=== PATIENT | male | born 1960 | race Caucasian/White ===

== ENCOUNTER 2023-04-11 11:04 | Outpatient (CLI) | payer BC | END 2023-04-11 11:05 | disposition EMS.NT | LOC: EMS 11:04 | DX: R58 Hemorrhage, not elsewhere classified (principal) ==

== ENCOUNTER 2023-04-11 11:19 | Emergency (ER) | payer BC ==
--- NOTE | 2023-04-11 11:44 | ED Physician Documentation ---
PD HPI LOWER EXT INJURY - Stated complaint Stated Complaint: LT LEG LAC - Chief complaint Chief Complaint: Trauma Ext - History obtained from History obtained from: Patient - History of Present Illness PD HPI LOW EXT INJURY LOCATION: Left, Lower leg Type of injury: Puncture wound (The patient was gardening 2 days ago and had a small abrasion/puncture to the anterior lower leg. It bled briefly and then stopped. He to had it bandaged. There was a small scabs in the area which she scraped at today to remove it and the wound started bleeding briskly in a spurting fashion.) Where injury occurred: Home (The patient and his did apply pressure to the area but it was still bleeding through bandage. EMS was called and they applied a tighter wrap and bandage to it that stopped the bleeding. Patient came here by private vehicle.) Timing - onset: How many days ago (injury 2 days ago, bleeding started today 1/2 hour [employer].) Timing - details: Abrupt onset Worsened by: Palpating Associated symptoms: No: Weakness, Numbness Review of Systems Neurologic: denies: Focal weakness, Numbness PD PAST MEDICAL HISTORY - Past Medical History Past Medical History: No Cardiovascular: None Respiratory: None Neuro: None Endocrine/Autoimmune: None GI: None : None HEENT: None Psych: None Musculoskeletal: None Derm: None - Past Surgical History Past Surgical History: No - Allergies Allergies/Adverse Reactions: Allergies Allergy/AdvReac Type Severity Reaction Status Date / Time No Known Drug Allergies Allergy Verified 04/11/23 11:36 - Social History Does the pt smoke?: No Smoking Status: Never smoker Does the pt drink ETOH?: Yes ETOH Use: Wine Does the pt have substance abuse?: No - Immunizations Immunizations are current?: Yes - POLST Patient has POLST: No PD ED PE NORMAL - Vitals Vital signs reviewed: Yes - General General: Alert and oriented X 3, No acute distress, Well developed/nourished - Derm Derm: Normal color, Warm and dry - Extremities Extremities: Other (The left anterior lower leg shows a small 2 or 3 mm sized wound that has dark blood spurting out in a steady fashion when I remove the dressing. It appears to be a varicosity but under higher pressure due to the small hole of it.) Results - Vitals Vitals: Vital Signs - 24 hr 04/11/23 04/11/23 11:32 12:39 Temperature 36.6 C 36.5 C Heart Rate 102 H 91 Respiratory 19 18 Rate Blood Pressure 147/83 H 135/80 H O2 Saturation 99 99 Oxygen O2 Source Room air Procedures - Laceration (location) left anterior lower leg Length in cm: 0.3 Wound type: Linear, Superficial, Clean Neurovascular status: Sensory intact, Motor intact Anesthesia: Lidocaine 1% Wound preparation: Irrigated copiously NS, Wound explored, To the base Skin layer closure: Nylon, Interrupted, Size #-0 - enter number (4), Sutures - enter # (5 - initially tried 2 in cross-X pattern to close over the small hole, but did not slow the bleeding much. Then I placed one suture below the wound in course of the vein and 2 above, each about a cm away from center and this stopp ed bleeding completely.) Other: Patient tolerated well, No complications PD Medical Decision Making - ED course Complexity details: considered differential (brisk spurting bleeding from apparent superficial vein on lower leg, but is too brisk for just TXA or dressing. Needs suture ligation/pressure. ), d/w patient ED course: I did get bleeding stopped with five sutures at wound spot and of the vein course above and below a cm or so. I then placed gauze with TXA over site and lo ose gauze/Coban to hold in position. Departure - Departure Disposition: 01 Home, Self Care Clinical Impression: Laceration of lower leg, Venous bleed Condition: Stable Record reviewed to determine appropriate education?: Yes Instructions: ED Laceration All Comments: The small puncture/lacerations seem to involve one of the surface veins (varicosity) and just had enough pressure and it to be spurting the way it was. I sutured over the puncture wound and then just above and below along the line of the vein which stopped the bleeding. Keep the dressing on today and clean and dry until tomorrow. At that point you can start with regular wound care of cleaning soap and water and regular bandages. Recheck if signs of infection. Suture removal 7 to 8 days. Return if it has significant bleeding again but I would not expect it the way it is stitched up at this point. Try not to do vigorous activity such as heavy lifting, prolonged walking or standing, yardwork, etc for 2-3 days. Riding in the car as you are planning is fine. Forms: PCP List Discharge Date/Time: 04/11/23 12:39
[2023-04-11 11:45] VITALS: O2SAT 99
[2023-04-11] MEDS ORDERED: TRANEXAMIC ACID 1,000 MG/10 ML VIAL NAS STA (11:58)
[2023-04-11 12:45] VITALS: BP 135/80
== END 2023-04-11 12:39 | disposition home or self-care (01) ==
LOC: ED 11:19
DX: S81.812A Laceration without foreign body, left lower leg, initial encounter (principal); W45.8XXA Other foreign body or object entering through skin, initial encounter; Y93.H2 Activity, gardening and landscaping
CPT/HCPCS: 12001; 99282

== ENCOUNTER 2023-04-25 11:56 | Emergency (ER) | payer BC ==
[2023-04-25 12:12] VITALS: BP 150/84; O2SAT 99
--- NOTE | 2023-04-25 12:17 | ED Physician Documentation ---
History of Present Illness - Stated complaint Stated Complaint: STITCHES REMOVAL - Chief complaint Chief Complaint: General - Additonal information Additional information: 62-year-old male presents emergency department for evaluation of suture removal from his left lower extremity. Seen here recently for bleeding varicose vein that was ligated. It has healed well without any complications. Review of Systems Skin: reports: Lesions PD PAST MEDICAL HISTORY - Past Medical History Past Medical History: No Cardiovascular: None Respiratory: None Neuro: None Endocrine/Autoimmune: None GI: None : None HEENT: None Psych: None Musculoskeletal: None Derm: None - Past Surgical History Past Surgical History: Yes HEENT: Tonsil/Adenoidectomy - Present Medications Home Medications: Ambulatory Orders Medication Instructions Recorded Confirmed No Known Home Medications 04/25/23 04/25/23 - Allergies Allergies/Adverse Reactions: Allergies Allergy/AdvReac Type Severity Reaction Status Date / Time No Known Drug Allergies Allergy Verified 04/25/23 12:01 - Social History Does the pt smoke?: No Smoking Status: Never smoker Does the pt drink ETOH?: Yes ETOH Use: Wine Does the pt have substance abuse?: No - Immunizations Immunizations are current?: Yes - POLST Patient has POLST: No PD ED PE EXPANDED - Extremities Extremities: Left leg (Sutures in place on the left lower medial leg at the site where varicose vein was ligated. The wound is well approximated with no surrounding erythema or drainage. Sutures were easily removed at the bedside.) Results - Vitals Vitals: Vital Signs - 24 hr 04/25/23 12:01 Temperature 36.3 C L Heart Rate 86 Respiratory 16 Rate Blood Pressure 150/84 H O2 Saturation 99 Oxygen O2 Source Room air PD Medical Decision Making - ED course Complexity details: reviewed results, re-evaluated patient, d/w patient ED course: Sutures removed from the left lower extremity. Wound is healed well. Disc harged home in stable condition with usual emergent return precautions discussed Departure - Departure Disposition: 01 Home, Self Care Clinical Impression: Visit for suture removal Condition: Stable Record reviewed to determine appropriate education?: Yes Comments: Alex the wound on your leg appears to have healed well. You can continue your usual care. I would recommend a thin layer of bacitracin or any antibiotic ointment until fully healed.
== END 2023-04-25 12:26 | disposition home or self-care (01) ==
LOC: ED 11:56
DX: Z48.02 Encounter for removal of sutures (principal)
CPT/HCPCS: 99281; 99282